=== PATIENT | female | born 1940 | race Caucasian/White ===

== ENCOUNTER 2019-05-03 22:52 | Inpatient (IN) | payer MEDICARE ==
[2019-05-03] MEDS ORDERED: Acetaminophen 500 MG TAB ONE (23:47)
[2019-05-03] MEDS ORDERED: metroNIDAZOLE 500 MG/100 ML BAG ONE (23:47)
[2019-05-03 23:49] LABS: #Monocytes 0.7 thou/uL (0.11-0.59); #Neutrophils 10.1 thou/uL (1.40-6.50); %Basophils 0.1 % (0.0-1.0); %Eosinophils 0.1 % (0.0-10.0); %Lymphocytes 15.6 % (21.0-51.0); %Monocytes 5.1 % (0.0-10.0); Hemoglobin 11.9 g/dL (12.0-16.0); Mean Corpuscular HGB CONC 34.2 g/dL (32.0-36.0); Mean Corpuscular Hemoglobin 30.3 pg (27.0-31.0); Mean Corpuscular Volume 88.8 fL (78.0-98.0); Platelet Count 134 thou/uL (130-400); RBC Distribution Width 12.4 % (11.5-14.5); Red Blood Cell (RBC) Count 3.94 mill/uL (4.20-5.40); White Blood Cell (WBC) Count 12.8 thou/uL (4.8-10.8)
[2019-05-03 23:57] LABS: PTT 27.1 SEC (22.9-36.1); Prothrombin Time 12.9 SEC (12.0-14.7)
[2019-05-04 00:10] LABS: ALT (SGPT) 29 U/L (8-55); AST (SGOT) 25 U/L (5-34); Albumin 3.9 g/dL (3.4-4.8); Alkaline Phosphatase 82 U/L (40-110); Anion Gap 14 mmol/L (10-20); BUN (Urea Nitrogen) 24 mg/dL (9.8-20.1); Bilirubin, Total 0.5 mg/dL (0.2-1.2); Calc. Creatinine Clearance 0 mL/min (70-130); Calcium 9.1 mg/dL (7.8-10.44); Carbon Dioxide 20 mmol/L (23-31); Chloride 107 mmol/L (98-107); Estimated GFR-MDRD 45; Globulin 2.1 g/dL (2.4-3.5); Glucose 114 mg/dL (83-110); Sodium 137 mmol/L (136-145)
--- NOTE | 2019-05-04 01:05 | HP ---
PRESENTING COMPLAINT: Bloody stool. HISTORY OF PRESENT ILLNESS: Ms. Nnamdi Paniagua is an 79-year-old female with past medical history of hypertension, CAD, history of colon cancer, status post resection 20 years ago on annual colonoscopy with last colonoscopy one year ago. Findings of small polyps, that were resected. The patient did develop transient crampy abdominal pain earlier today, associated with stool, which was initially brownish with few streaks of blood present this afternoon. She went to the outside facility ED, where she had CT scan, that showed evidence of possible colitis versus mass. The patient was transferred here. She has not had any bowel movement since the last 8 hours. She denies any abdominal pain. She denies any nausea or vomiting. She denies any recent intake. She was noted with fever to 101, but she denies any chills. She denies any associated diarrhea. PAST MEDICAL HISTORY: Hypertension, hyperlipidemia, and coronary artery disease. PAST SURGICAL HISTORY: Colon resection for cancer as well as hysterectomy and appendectomy. FAMILY HISTORY: No history of coronary artery disease. SOCIAL HISTORY: The patient is a lifelong nonsmoker. No history of alcohol or illicit drug use. Resides in community with her spouse. REVIEW OF SYSTEMS: All systems reviewed x14 were negative. ALLERGIES: HYDRALAZINE AND IODINE. HOME MEDICATION: Awaiting med reconciliation. PHYSICAL EXAMINATION: VITAL SIGNS: Current vitals; blood pressure of 136/66, pulse of 96, respiratory rate of 17, temperature 101, O2 saturation 96% on room air. GENERAL: Elderly female, calm, not in any distress . HEENT: Head is atraumatic and normocephalic. [place] conjunctivae. NECK: No JVD. No carotid bruit. RESPIRATORY: Good air entry. No crepitation. CARDIOVASCULAR: S1 and S2. Rate and rhythm are regular. GI: Abdomen is full, soft, nontender. Bowel sounds positive in all four quadrants. RECTAL: Deferred. EXTREMITIES: No pedal edema. No calf tenderness. NEURO: The patient is alert and oriented. Cranial nerves 2 through 12 grossly intact. LABORATORY DATA: WBC 12.8, hemoglobin 11.9, platelets 134, neutrophils 79%. INR 1.0, PTT 27. Sodium 137, potassium 4, bicarb 22, BUN 24, creatinine 1.1, lactate 1.3. AST and alkaline phosphatase normal. CT of the abdomen, awaiting official reading. IMPRESSION: 1. Presumed abdominal colitis. 2. Hypertension. 3. History of colon cancer. 4. Transient lower GI bleed. PLAN: We admit the patient to inpatient status given the presence of fever, most likely colitis, doubt the presence of colon cancer recurrence. We will consult GI. The patient may need a colonoscopy when more stable. We will start empirical antibiotics with Levaquin and Flagyl. We will start patient on a clear liquid diet for now. Gentle IV fluid with normal saline. Continue home medications with blood pressure control. We will do subcutaneous heparin for DVT prophylaxis. Advanced directives discussed with the patient, she wishes to be trial full code. Total time spent explaining the diagnosis and anticipated plan of management on discussion with patient and spouse present in the room, greater than 60 minutes. Job ID: [id number]
[2019-05-04] MEDS ORDERED: Sodium Chloride 0.9% 1,000 ML IV SCH (02:30)
[2019-05-04] MEDS ORDERED: HYDROcodone/Acetaminophen 5/325 mg Tablet PO PRN (03:08)
[2019-05-04] MEDS ORDERED: Nitroglycerin 0.4 MG TAB (25 Tab Bottle) SL PRN (03:08)
[2019-05-04] MEDS ORDERED: Morphine 2 MG/ML SYRINGE SLOW IVP PRN (03:08)
[2019-05-04] MEDS ORDERED: Acetaminophen 325 MG TAB PO PRN (03:08)
[2019-05-04 03:21] VITALS: BMI 29.3
[2019-05-04] MEDS: Sodium Chloride 0.9% 1,000 ML IV SCH ×2 (03:54→12:18)
[2019-05-04 07:32] LABS: Albumin 3.5 g/dL (3.4-4.8); Anion Gap 11 mmol/L (10-20); BUN (Urea Nitrogen) 23 mg/dL (9.8-20.1); BUN/Creatinine Ratio 19.83; Calc. Creatinine Clearance 49 mL/min (70-130); Calcium 8.7 mg/dL (7.8-10.44); Carbon Dioxide 26 mmol/L (23-31); Chloride 105 mmol/L (98-107); Estimated GFR-MDRD 45; Glucose 102 mg/dL (83-110); Phosphorus 3.5 mg/dL (2.3-4.7); Sodium 138 mmol/L (136-145)
[2019-05-04 08:04] LABS: #Basophils 0.2 thou/uL (0.0-0.2); #Lymphocytes 2.7 thou/uL (1.20-3.40); #Monocytes 0.8 thou/uL (0.11-0.59); #Neutrophils 8.6 thou/uL (1.40-6.50); %Basophils 1.2 % (0.0-1.0); %Eosinophils 0.2 % (0.0-10.0); %Lymphocytes 21.6 % (21.0-51.0); %Monocytes 6.7 % (0.0-10.0); %Neutrophils 70.3 % (42.0-75.0); Hemoglobin 11.1 g/dL (12.0-16.0); Mean Corpuscular HGB CONC 34.2 g/dL (32.0-36.0); Mean Corpuscular Hemoglobin 30.6 pg (27.0-31.0); Mean Corpuscular Volume 89.3 fL (78.0-98.0); Platelet Count 117 thou/uL (130-400); Platelet Morphology Comment Appears Decreased; RBC Distribution Width 12.5 % (11.5-14.5); Red Blood Cell (RBC) Count 3.64 mill/uL (4.20-5.40); White Blood Cell (WBC) Count 12.3 thou/uL (4.8-10.8)
[2019-05-04] MEDS: Famotidine 20 MG TAB PO SCH (08:29)
[2019-05-04] MEDS: metroNIDAZOLE 500 MG in Premix Bag 1 BAG IVPB SCH ×3 (08:30→23:41)
[2019-05-04] MEDS: Lisinopril 20 MG TAB PO SCH (08:30)
[2019-05-04] MEDS: Clopidogrel Bisulfate 75 MG TAB PO SCH (08:47)
[2019-05-04] MEDS: Heparin 5,000 UNITS/ML VIAL SC SCH ×3 (08:47→19:30)
[2019-05-04] MEDS: Aspirin 81 mg Enteric Coated Tablet PO SCH (08:47)
[2019-05-04] MEDS ORDERED: FLU VACC TS2019-20(65YR UP)/PF 180 MCG/0.5 ML SYRINGE IM ONE (09:00)
--- NOTE | 2019-05-04 12:14 | PDOC.HOSPP ---
- Subjective Encounter Date: 05/04/19 Subjective: BLOOD CLOTS IN STOOL - Objective Vital Signs & Weight: Vital Signs (12 hours) Temp Pulse Resp BP BP Pulse Ox 05/04/19 11:29 98.0 F 72 16 100/62 95 05/04/19 08:30 119/62 05/04/19 08:06 99.5 F 70 16 108/66 98 05/04/19 04:00 98.9 F 73 18 102/75 98 05/04/19 03:25 97 05/04/19 02:50 99.1 F 92 18 123/70 97 Weight Weight 176 lb 4 oz I&O: 05/03/19 05/04/19 05/05/19 06:59 06:59 06:59 Intake Total 650 Balance 650 Result Diagrams: 05/04/19 06:52 05/04/19 06:52 Hospitalist ROS - Review of Systems Other: BLOOD CLOTS IN STOOL - Medication Medications: Active Medications Generic Name Dose Route Start Last Admin Trade Name Freq PRN Reason Stop Dose Admin Aspirin 81 mg 05/04/19 09:00 05/04/19 08:47 Ecotrin PO Not Given [facility] Clopidogrel Bisulfate 75 mg 05/04/19 09:00 05/04/19 08:47 Plavix PO Not Given QAM [facility] Famotidine 20 mg 05/04/19 09:00 05/04/19 08:29 Pepcid PO 20 mg 0900 SHMUEL Administration Heparin Sodium (Porcine) 5,000 units 05/04/19 09:00 05/04/19 12:01 Heparin SC Not Given TID SHMUEL Metronidazole 500 mg/ Device 100 mls @ 100 mls/hr 05/04/19 08:00 05/04/19 08: 30 IVPB 100 mls 0800,1600,2359 SHMUEL Administration Levofloxacin 500 mg/ Device 100 mls @ 100 mls/hr 05/04/19 14:00 05/04/19 12: 04 IVPB 100 mls 1400 SHMUEL Administration Sodium Chloride 1,000 mls @ 50 mls/hr 05/04/19 03:08 05/04/19 03:54 Normal Saline 0.9% IV 1,000 mls .Q20H SHMUEL Administration Isosorbide Mononitrate 60 mg 05/04/19 09:00 05/04/19 08:30 Imdur PO 60 mg QAM SHMUEL Administration Lisinopril 20 mg 05/04/19 09:00 05/04/19 08:30 Zestril PO 20 mg QAM SHMUEL Administration Metoprolol Succinate 25 mg 05/04/19 09:00 05/04/19 08:30 Toprol Xl PO 25 mg QAM SHMUEL Administration Ranolazine 500 mg 05/04/19 09:00 05/04/19 08:30 Ranexa PO 500 mg BID SHMUEL Administration - Exam Eye: PERRL, anicteric sclera ENT: normocephalic atraumatic, no oropharyngeal lesions, moist mucosa Neck: supple, symmetric, no JVD, no thyromegaly, no lymphadenopathy, no carotid bruit Heart: RRR, no murmur, no gallops, no rubs, normal peripheral pulses Respiratory: CTAB, no wheezes, no rales, no ronchi, normal chest expansion, no tachypnea, normal percussion Gastrointestinal: soft, non-tender, non-distended, normal bowel sounds, no palpable masses, no hepatomegaly, no splenomegaly, no bruit Extremities: no cyanosis, no clubbing, no edema Neurological: cranial nerve grossly intact, normal sensation to touch, no weakness, no focal deficits, no new deficit Musculoskeletal: normal tone, normal strength, no muscle wasting Psychiatric: normal affect, normal behavior, A&O x 3 Hosp A/P (1) Acute GI hemorrhage Code(s): K92.2 - GASTROINTESTINAL HEMORRHAGE, UNSPECIFIED Status: Acute Plan: GI HAS BEEN CONSULTED.AWAITING EVAL.LIKELY DIVERTICULAR BLEED. (2) CAD (coronary artery disease) Code(s): I25.10 - ATHSCL HEART DISEASE OF [place] CORONARY ARTERY W/O ANG PCTRS Status: Acute Qualifiers: Coronary Disease-Associated Artery/Lesion type: [place] artery [place] vs. transplanted heart: [place] heart Associated angina: with unspecified angina Qualified Code(s): I25.119 - Atherosclerotic heart disease of [place] coronary artery with unspecified angina pectoris (3) Dyslipidemia Code(s): E78.5 - HYPERLIPIDEMIA, UNSPECIFIED Status: Chronic (4) HTN (hypertension) Code(s): I10 - ESSENTIAL (PRIMARY) HYPERTENSION Status: Chronic Qualifiers: Hypertension type: essential hypertension Qualified Code(s): I10 - Essential (primary) hypertension - Plan old records reviewed/req, out of bed/ambulate WE WILL FOLLOW CBC AND GI EVALUATION.
[2019-05-04] MEDS: ALPRAZolam 0.5 MG TAB PO SCH (21:12)
[2019-05-04] MEDS: Atorvastatin Calcium 10 MG TAB PO SCH (21:12)
--- NOTE | 2019-05-04 22:05 | CON ---
DATE OF CONSULTATION: 05/04/[address] Annel Han. REASON FOR CONSULTATION: Hematochezia, abnormal CAT scan of the abdomen. HISTORY OF PRESENT ILLNESS: Ms. Arcelia Coto is a very pleasant 79-year-old female with history of colon cancer more than 21 years ago. She has had some resection of the colon mass and has done very well. She has been seeing Dr. Multani in [place] for colonoscopy. She had a colonoscopy a year ago and had some polyps removed. She has also seen Dr. Pavan Naranjo in 2013 and had an EGD and a colonoscopy. She also has couple of small polyps removed. The patient does not want to go back and see Dr. Multani and she also does not want to go back to Dr. Pavan Naranjo. The patient has been having abdominal pain off and on over the last 6 months or so. The pain is actually over the left upper quadrant under the margin. She tells me her pain comes and goes. She has never told her primary care doctor about the pain. The patient also had acute abdominal pain yesterday. The pain was cramping in nature and over the left upper quadrant and close the pelvic area. The pain was cramping in nature and not much severe. She had no fever, no nausea or vomiting. She had developed diarrhea with multiple loose stool subsequent to passing blood. She says she passed very large amount of blood. Abdominal pain markedly improved today and also bleeding has markedly slowed down. She had ongoing diarrhea. The patient denies any recent antibiotic intake. No prior history of any colitis. Although, she says she has passed a large amount of blood, her blood count is reasonably close to being normal. The admitting CBC, hemoglobin 11.9, hematocrit 35. Today, hemoglobin 11.1, hematocrit 33.3. Bleeding has markedly slowed down today. Also has ongoing diarrhea. She is tolerating clear liquid diet. Abdomen, which was pretty severe yesterday has markedly improved, but she still has some soreness over the left lower quadrant. She has no prior history of colitis. CAT scan of the abdomen did show some colitis over the left colon area and is on IV antibiotics. She has no relevant history. ALLERGIES: HYDRALAZINE AND IODINE. SOCIAL HISTORY: The patient is . Does not smoke or drink alcohol. No history of drug use. MEDICAL ILLNESS: 1. Hypertension. 2. Hyperlipidemia. 3. Coronary artery disease, stent placement by Dr. Jorge I think 3 years ago. She does see Dr. Jorge at least every 6 months. 4. Colon cancer, status post resection 20 years ago. 5. Fibroid uterus, status post hysterectomy. 6. Appendectomy. 7. Colonoscopy and polypectomy. 8. EGD and biopsy, 5 years ago. FAMILY HISTORY: Has a family history of cancer. One maternal aunt had colon cancer, another aunt had breast cancer, another one had lung cancer. No family history of diabetes, heart disease, or CVA. MEDICATION LIST: Reviewed. REVIEW OF SYSTEMS: Ten-point system review. HEAD: No chronic headache. No dizziness. EYES: No impaired vision, no diplopia. EARS: No hearing loss. No pain or any discharge. NOSE: No nose bleed. THROAT: No dysphagia or sore throat. NECK: No stiffness or pain. LUNGS: No chronic coughing, hemoptysis, or dyspnea. CARDIOVASCULAR SYSTEM: Coronary artery disease, status post stent placement. No chest pain. No palpitation. No dyspnea, orthopnea, or PND. : No dysuria or hematuria. MUSCULOSKELETAL/NEURO/ENDOCRINE/PSYCHIATRY: Nonrelevant. PHYSICAL EXAMINATION: GENERAL: She appears very comfortable, in no acute distress. VITAL SIGNS: Afebrile, pulse is 69, blood pressure is 100/62. HEENT: Conjunctivae are clear. NECK: Supple. No lymphadenopathy. CARDIOVASCULAR SYSTEM: First and second heart sounds are normal. LUNGS: Clear to auscultation. ABDOMEN: Soft. Abdomen is nondistended. Minimally tender over the left lower quadrant. There is no rebound or guarding. Bowel sounds are normal. EXTREMITIES: Reveal no edema. LABORATORY DATA: CBC today WBC 12,300; hemoglobin 11.1; hematocrit 32.5; MCV 89.3; platelet count 117,000. Polymorphs 70, lymphocytes 21. Chemistry panel; lytes are normal. BUN is 23, creatinine 1.16, glucose 102, calcium 7.7, phosphorus 3.5. LFT is normal. Albumin 3.9. CAT scan of the abdomen showed left-sided colitis, infectious versus ischemic. IMPRESSION: 1. An 79-year-old female with abdominal cramping and diarrhea, rectal bleeding. CAT scan did show colitis. She has infectious colitis versus ischemic colitis. 2. History of colon cancer, status post surgery 21 years ago. 3. Colon polyp. 4. Hypertension. RECOMMENDATIONS: Advance diet to regular diet tomorrow. If she does well, she can probably go home on antibiotics. She will come back to see me in 2 weeks for a colonoscopy as an outpatient. Job ID: [id number]
[2019-05-05] MEDS: Ondansetron PF 4 MG/2 ML Vial SLOW IVP PRN (01:11)
[2019-05-05] MEDS: metroNIDAZOLE 500 MG in Premix Bag 1 BAG IVPB SCH ×3 (08:04→23:52)
[2019-05-05] MEDS: Aspirin 81 mg Enteric Coated Tablet PO SCH (08:05)
[2019-05-05] MEDS: Famotidine 20 MG TAB PO SCH (08:05)
[2019-05-05] MEDS: Lisinopril 20 MG TAB PO SCH (08:05)
[2019-05-05] MEDS: Clopidogrel Bisulfate 75 MG TAB PO SCH (08:06)
[2019-05-05] MEDS: Heparin 5,000 UNITS/ML VIAL SC SCH ×3 (08:12→20:10)
--- NOTE | 2019-05-05 14:55 | PRG ---
DATE OF SERVICE: 05/05/2019 SUBJECTIVE: This is a very pleasant 79-year-old female hospitalized for acute diarrhea, hematochezia, and abdominal pain. Her abdominal pain is worse as well. She has had less frequent stools. She had 2 stools yesterday and one stool today. However, the stools are watery. She also has mild bleeding in the stool. She has had some mild nausea today and was medicated. OBJECTIVE: GENERAL: Appears comfortable. VITAL SIGNS: Afebrile, pulse is 60, and blood pressure 108/58. CARDIOVASCULAR SYSTEM AND LUNGS: Within normal limits. ABDOMEN: Soft. Abdomen is tender over the left quadrant area, but tenderness is very mild. There is no rebound or guarding. IMPRESSION: 1. Acute colitis, most likely infectious versus ischemic. 2. Colon cancer, status post surgery 21 years ago. 3. Colon polyp. RECOMMENDATIONS: 1. Advance diet to regular diet. 2. She does well with regular diet, consider discharge home on Cipro and Flagyl. She will come back to see me in the next couple of weeks as an outpatient. However, she has recurrence of diarrhea with oral intake, may have to do some stool exam. Job ID: [id number]
--- NOTE | 2019-05-05 16:12 | PDOC.HOSPP ---
- Subjective Encounter Date: 05/05/19 Subjective: some diarrhea without any clots - Objective Vital Signs & Weight: Vital Signs (12 hours) Temp Pulse Resp BP BP Pulse Ox 05/05/19 11:45 98.0 F 60 20 108/58 L 95 05/05/19 08:05 119/62 05/05/19 08:00 98.1 F 59 L 20 110/69 97 Weight Admit Weight 176 lb 4 oz Weight 176 lb 4 oz I&O: 05/04/19 05/05/19 05/06/19 06:59 06:59 06:59 Intake Total 650 1999 480 Balance 650 1999 480 Result Diagrams: 05/04/19 06:52 05/04/19 06:52 Hospitalist ROS - Review of Systems Other: no more per rectal bleeding - Medication Medications: Active Medications Generic Name Dose Route Start Last Admin Trade Name Freq PRN Reason Stop Dose Admin Alprazolam 0.5 mg 05/04/19 21:00 05/04/19 21:12 Xanax PO 0.5 mg HS SHMUEL Administration Aspirin 81 mg 05/04/19 09:00 05/05/19 08:05 Ecotrin PO 81 mg QAM SHMUEL Administration Atorvastatin Calcium 10 mg 05/04/19 21:00 05/04/19 21:12 Lipitor PO 10 mg HS SHMUEL Administration Clopidogrel Bisulfate 75 mg 05/04/19 09:00 05/05/19 08:06 Plavix PO 75 mg QAM SHMUEL Administration Famotidine 20 mg 05/04/19 09:00 05/05/19 08:05 Pepcid PO 20 mg 0900 SHMUEL Administration Heparin Sodium (Porcine) 5,000 units 05/04/19 09:00 05/05/19 14:17 Heparin SC Not Given TID SHMUEL Metronidazole 500 mg/ Device 100 mls @ 100 mls/hr 05/04/19 08:00 05/05/19 15: 36 IVPB 100 mls 0800,1600,2359 SHMUEL Administration Levofloxacin 500 mg/ Device 100 mls @ 100 mls/hr 05/04/19 14:00 05/05/19 13: 51 IVPB 100 mls 1400 SHMUEL Administration Sodium Chloride 1,000 mls @ 50 mls/hr 05/04/19 03:08 05/04/19 12:18 Normal Saline 0.9% IV 1,000 mls .Q20H SHMUEL Administration Isosorbide Mononitrate 60 mg 05/04/19 09:00 05/05/19 08:05 Imdur PO 60 mg QAM SHMUEL Administration Lisinopril 20 mg 05/04/19 09:00 05/05/19 08:05 Zestril PO 20 mg QAM SHMUEL Administration Metoprolol Succinate 25 mg 05/04/19 09:00 05/05/19 08:05 Toprol Xl PO 25 mg QAM SHMUEL Administration Ondansetron HCl 4 mg 05/05/19 00:03 05/05/19 01:11 Zofran SLOW IVP 4 mg Q6H PRN Administration Nausea/Vomiting Ranolazine 500 mg 05/04/19 09:00 05/05/19 08:05 Ranexa PO 500 mg BID SHMUEL Administration - Exam General Appearance: NAD, awake alert Eye: PERRL, anicteric sclera ENT: normocephalic atraumatic, no oropharyngeal lesions, moist mucosa Neck: supple, symmetric, no JVD, no thyromegaly, no lymphadenopathy, no carotid bruit Heart: RRR, no murmur, no gallops, no rubs, normal peripheral pulses Respiratory: CTAB, no wheezes, no rales, no ronchi, normal chest expansion, no tachypnea, normal percussion Gastrointestinal: soft, non-tender, non-distended, normal bowel sounds, no palpable masses, no hepatomegaly, no splenomegaly, no bruit Extremities: no cyanosis, no clubbing, no edema Skin: normal turgor, no lesions, no rashes Neurological: cranial nerve grossly intact, normal sensation to touch, no weakness, no focal deficits, no new deficit Musculoskeletal: normal tone, normal strength, no muscle wasting Hosp A/P (1) Acute GI hemorrhage Code(s): K92.2 - GASTROINTESTINAL HEMORRHAGE, UNSPECIFIED Status: Resolved Plan: resolved per rectal bleeding (2) CAD (coronary artery disease) Code(s): I25.10 - ATHSCL HEART DISEASE OF [place] CORONARY ARTERY W/O ANG PCTRS Status: Acute Qualifiers: Coronary Disease-Associated Artery/Lesion type: [place] artery [place] vs. transplanted heart: [place] heart Associated angina: with unspecified angina Qualified Code(s): I25.119 - Atherosclerotic heart disease of [place] coronary artery with unspecified angina pectoris (3) Dyslipidemia Code(s): E78.5 - HYPERLIPIDEMIA, UNSPECIFIED Status: Chronic (4) HTN (hypertension) Code(s): I10 - ESSENTIAL (PRIMARY) HYPERTENSION Status: Chronic Qualifiers: Hypertension type: essential hypertension Qualified Code(s): I10 - Essential (primary) hypertension - Plan old records reviewed/req, plan discussed w/ family Likely discharge plan in am with oral antibiotics.
[2019-05-05] MEDS: ALPRAZolam 0.5 MG TAB PO SCH (20:11)
[2019-05-05] MEDS: Atorvastatin Calcium 10 MG TAB PO SCH (20:11)
[2019-05-05] MEDS: Sodium Chloride 0.9% 1,000 ML IV SCH (20:12)
[2019-05-06] MEDS: Sodium Chloride 0.9% 1,000 ML IV SCH ×2 (04:34→16:09)
[2019-05-06] MEDS: Ondansetron PF 4 MG/2 ML Vial SLOW IVP PRN (08:09)
[2019-05-06] MEDS: Lisinopril 20 MG TAB PO SCH (08:10)
[2019-05-06] MEDS: Aspirin 81 mg Enteric Coated Tablet PO SCH (08:10)
[2019-05-06] MEDS: Clopidogrel Bisulfate 75 MG TAB PO SCH (08:11)
[2019-05-06] MEDS: Famotidine 20 MG TAB PO SCH (08:11)
[2019-05-06] MEDS: Heparin 5,000 UNITS/ML VIAL SC SCH ×3 (08:12→19:47)
[2019-05-06] MEDS: metroNIDAZOLE 500 MG in Premix Bag 1 BAG IVPB SCH ×2 (08:13→16:07)
--- NOTE | 2019-05-06 11:52 | PDOC.HOSPP ---
- Subjective Encounter Date: 05/06/19 Subjective: c/o intractable [place] and vomiting - Objective Vital Signs & Weight: Vital Signs (12 hours) Temp Pulse Resp BP BP Pulse Ox 05/06/19 08:10 135/72 05/06/19 08:00 98.1 F 68 20 151/71 H 96 05/06/19 05:21 98.4 F 135/72 05/06/19 00:00 67 146/73 H Weight Admit Weight 176 lb 4 oz Weight 176 lb 4 oz I&O: 05/05/19 05/06/19 05/07/19 06:59 06:59 06:59 Intake Total 1999 1869 Balance 1999 1869 Result Diagrams: 05/04/19 06:52 05/04/19 06:52 Hospitalist ROS - Review of Systems Gastrointestinal: reports: nausea, vomiting, diarrhea - Medication Medications: Active Medications Generic Name Dose Route Start Last Admin Trade Name Freq PRN Reason Stop Dose Admin Alprazolam 0.5 mg 05/04/19 21:00 05/05/19 20:11 Xanax PO 0.5 mg HS SHMUEL Administration Aspirin 81 mg 05/04/19 09:00 05/06/19 08:10 Ecotrin PO 81 mg QAM SHMUEL Administration Atorvastatin Calcium 10 mg 05/04/19 21:00 05/05/19 20:11 Lipitor PO 10 mg HS SHMUEL Administration Clopidogrel Bisulfate 75 mg 05/04/19 09:00 05/06/19 08:11 Plavix PO 75 mg QAM SHMUEL Administration Famotidine 20 mg 05/04/19 09:00 05/06/19 08:11 Pepcid PO 20 mg 0900 SHMUEL Administration Heparin Sodium (Porcine) 5,000 units 05/04/19 09:00 05/06/19 08:12 Heparin SC Not Given TID SHMUEL Metronidazole 500 mg/ Device 100 mls @ 100 mls/hr 05/04/19 08:00 05/06/19 08: 13 IVPB 100 mls 0800,1600,2359 SHMUEL Administration Levofloxacin 500 mg/ Device 100 mls @ 100 mls/hr 05/04/19 14:00 05/05/19 13: 51 IVPB 100 mls 1400 SHMUEL Administration Sodium Chloride 1,000 mls @ 50 mls/hr 05/04/19 03:08 11/26/19 04:34 Normal Saline 0.9% IV 1,000 mls .Q20H SHMUEL Administration Isosorbide Mononitrate 60 mg 05/04/19 09:00 05/06/19 08:11 Imdur PO 60 mg QAM SHMUEL Administration Lisinopril 20 mg 05/04/19 09:00 05/06/19 08:10 Zestril PO 20 mg QAM SHMUEL Administration Metoprolol Succinate 25 mg 05/04/19 09:00 05/06/19 08:11 Toprol Xl PO 25 mg QAM SHMUEL Administration Ondansetron HCl 4 mg 05/05/19 00:03 05/06/19 08:09 Zofran SLOW IVP 4 mg Q6H PRN Administration Nausea/Vomiting Ranolazine 500 mg 05/04/19 09:00 05/06/19 08:10 Ranexa PO 500 mg BID SHMUEL Administration - Exam General Appearance: awake alert Eye: PERRL, anicteric sclera ENT: normocephalic atraumatic, no oropharyngeal lesions, moist mucosa Neck: supple, symmetric, no JVD, no thyromegaly, no lymphadenopathy, no carotid bruit Heart: RRR, no murmur, no gallops, no rubs, normal peripheral pulses Respiratory: CTAB, no wheezes, no rales, no ronchi, normal chest expansion, no tachypnea, normal percussion Gastrointestinal: soft, non-tender, non-distended, normal bowel sounds, no palpable masses, no hepatomegaly, no splenomegaly, no bruit Extremities: no cyanosis, no clubbing, no edema Skin: normal turgor, no lesions, no rashes Neurological: cranial nerve grossly intact, normal sensation to touch, no weakness, no focal deficits, no new deficit Musculoskeletal: normal tone, normal strength, no muscle wasting Psychiatric: normal affect, normal behavior, A&O x 3 Hosp A/P (1) Acute GI hemorrhage Code(s): K92.2 - GASTROINTESTINAL HEMORRHAGE, UNSPECIFIED Status: Resolved (2) CAD (coronary artery disease) Code(s): I25.10 - ATHSCL HEART DISEASE OF [place] CORONARY ARTERY W/O ANG PCTRS Status: Acute Qualifiers: Coronary Disease-Associated Artery/Lesion type: [place] artery [place] vs. transplanted heart: [place] heart Associated angina: with unspecified angina Qualified Code(s): I25.119 - Atherosclerotic heart disease of [place] coronary artery with unspecified angina pectoris (3) Dyslipidemia Code(s): E78.5 - HYPERLIPIDEMIA, UNSPECIFIED Status: Chronic (4) HTN (hypertension) Code(s): I10 - ESSENTIAL (PRIMARY) HYPERTENSION Status: Chronic Qualifiers: Hypertension type: essential hypertension Qualified Code(s): I10 - Essential (primary) hypertension (5) Colitis Code(s): K52.9 - NONINFECTIVE GASTROENTERITIS AND COLITIS, UNSPECIFIED Status : Acute Plan: S/P COLONOSCOPY WITH ADVICE FOR ANTIBIOTICS. (6) Intractable nausea and vomiting Code(s): R11.2 - NAUSEA WITH VOMITING, UNSPECIFIED Status: Acute Plan: CONTINUE ZOFRAN . - Plan old records reviewed/req, plan discussed w/ family, out of bed/ambulate 1.Colitis and patient adviced for antibiotics. 2.Today c/o intractable nausea,vomiting and diarrhea.Prescribed oral probiotics. 3.For now dont suspect diarrhea due to c diff.
[2019-05-06] MEDS ORDERED: Saccharomyces boulardii 250 MG CAP PO SCH (14:45)
--- NOTE | 2019-05-06 16:48 | PRG ---
DATE OF SERVICE: 05/06/2019 SUBJECTIVE: Ms. Coto was having a lot of nausea and some dry heaves earlier today. She is not having significant abdominal pain, just more generalized abdominal discomfort. She has had 2 bowel movements, which have been loose, but there has been no further blood in the stool. She has been tolerating her diet this afternoon. OBJECTIVE: VITAL SIGNS: Temperature 98.1, pulse 68, blood pressure 135/72, and 98% oxygen saturation on room air. GENERAL: In no acute distress. HEART: Regular rate and rhythm. LUNGS: Clear to auscultation bilaterally. ABDOMEN: Soft. Bowel sounds present. Nontender to palpation. EXTREMITIES: No peripheral edema. LABORATORY STUDIES: No new labs today. ASSESSMENT AND PLAN: 1. Acute left-sided colitis, likely ischemic versus infectious. 2. History of colon cancer, status post surgery 21 years ago. 3. Nausea. 4. Abdominal pain, improved. 5. Diarrhea, improving. The patient is now on day 3 of ciprofloxacin and Flagyl. Colitic symptoms do seem to be continuing to slowly improve. Based on her overall presentation and the location of the colitis, I would more strongly favor ischemic colitis. Typically, symptoms resolve within 1 to 2 weeks, though some degree of diarrhea may persist for some time thereafter. It is possible that the metronidazole may be contributing to the nausea. I would favor going ahead and finishing the antibiotics now, continuing other supportive care, advancing diet as tolerated. If she is tolerating her diet well tomorrow with otherwise good symptom control, I would see no barrier to hospital discharge. She has plans to follow up with Dr. Kasper in a couple of weeks for outpatient colonoscopy. Job ID: [id number]
[2019-05-06] MEDS: ALPRAZolam 0.5 MG TAB PO SCH (20:13)
[2019-05-06] MEDS: Atorvastatin Calcium 10 MG TAB PO SCH (20:13)
[2019-05-07 06:28] LABS: #Basophils 0.1 thou/uL (0.0-0.2); #Eosinphils 0.1 thou/uL (0.0-0.7); #Monocytes 0.5 thou/uL (0.11-0.59); #Neutrophils 2.5 thou/uL (1.40-6.50); %Basophils 1.2 % (0.0-1.0); %Eosinophils 2.4 % (0.0-10.0); %Lymphocytes 38.4 % (21.0-51.0); %Monocytes 9.3 % (0.0-10.0); %Neutrophils 48.8 % (42.0-75.0); Hemoglobin 10.1 g/dL (12.0-16.0); Mean Corpuscular HGB CONC 33.1 g/dL (32.0-36.0); Mean Corpuscular Hemoglobin 29.8 pg (27.0-31.0); Mean Platelet Volume 8.1 fL (7.4-10.4); Platelet Count 119 thou/uL (130-400); RBC Distribution Width 12.5 % (11.5-14.5); White Blood Cell (WBC) Count 5.1 thou/uL (4.8-10.8)
[2019-05-07 06:35] LABS: ALT (SGPT) 16 U/L (8-55); AST (SGOT) 19 U/L (5-34); Albumin 3.1 g/dL (3.4-4.8); Alkaline Phosphatase 64 U/L (40-110); Anion Gap 11 mmol/L (10-20); BUN (Urea Nitrogen) 11 mg/dL (9.8-20.1); Bilirubin, Total 0.3 mg/dL (0.2-1.2); Calc. Creatinine Clearance 70 mL/min (70-130); Calcium 8.3 mg/dL (7.8-10.44); Carbon Dioxide 20 mmol/L (23-31); Chloride 110 mmol/L (98-107); Estimated GFR-MDRD 68; Glucose 91 mg/dL (83-110); Potassium 3.7 mmol/L (3.5-5.1); Protein, Total 5.1 g/dL (6.0-8.3); Sodium 137 mmol/L (136-145)
[2019-05-07] MEDS ORDERED: Saccharomyces boulardii 250 MG CAP PO SCH (09:00)
[2019-05-07] MEDS: Aspirin 81 mg Enteric Coated Tablet PO SCH (09:30)
[2019-05-07] MEDS: Lisinopril 20 MG TAB PO SCH (09:30)
[2019-05-07] MEDS: Clopidogrel Bisulfate 75 MG TAB PO SCH (09:31)
[2019-05-07] MEDS: Heparin 5,000 UNITS/ML VIAL SC SCH (09:31)
[2019-05-07] MEDS: Famotidine 20 MG TAB PO SCH (09:31)
[2019-05-07 11:53] VITALS: BP 150/74; TEMP 97.7
--- NOTE | 2019-05-07 12:31 | PRG ---
DATE OF SERVICE: 05/07/2019 SUBJECTIVE: Ms. Coto is feeling a lot better today. She has been tolerating her diet. There is no nausea. No abdominal pain. She has had one loose bowel movement today with no blood in it. OBJECTIVE: VITAL SIGNS: Temperature 97.7, pulse 61, blood pressure 150/74, and 97% oxygen saturation on room air. GENERAL: No acute distress. HEART: Regular rate and rhythm. LUNGS: Clear to auscultation bilaterally. ABDOMEN: Bowel sounds present. Soft and nontender to palpation throughout. EXTREMITIES: No peripheral edema. LABORATORY STUDIES: Hemoglobin 10.1, WBC 5.1, platelets 119. Sodium 137, potassium 3.7, BUN 11, and creatinine 0.81. LFTs all normal. ASSESSMENT AND PLAN: 1. Acute left-sided colitis, likely representing ischemic colitis, clinically improved. 2. Abdominal pain, resolved. 3. Diarrhea, improving. The patient has had rapid clinical improvement over the past couple of days. Clinically, this remains consistent with resolving self-limited ischemic colitis episode. Expect continued improvement over the next 1 to 2 weeks, back to baseline. I do not think she needs any more antibiotics. From a GI perspective, if she is doing well this afternoon, she could be potentially discharged from the hospital. She plans to follow up with Dr. Kasper in a couple of weeks for outpatient colonoscopy. GI will sign off, but please call back anytime with questions or concerns. Job ID: [id number]
--- NOTE | 2019-05-08 02:47 | DIS ---
DATE OF ADMISSION: 05/04/2019 DATE OF DISCHARGE: 05/07/2019 ADMISSION DIAGNOSES: 1. Presumed abdominal colitis. 2. Hypertension. 3. History of colon cancer. 4. Transient lower gastrointestinal bleed. DISCHARGE DIAGNOSES: 1. Acute left-sided colitis, likely ischemic colitis. 2. Abdominal pain - resolved. 3. Coronary artery disease. 4. Essential hypertension. 5. Dyslipidemia. 6. Acute kidney injury - resolved. CONSULTATIONS: Gastroenterology, Dr. Pelon Kasper. PROCEDURES AND IMAGING: None. HOSPITAL COURSE: The patient is an 79-year-old female with past medical history of coronary artery disease; hypertension; dyslipidemia; history of colon cancer, status post resection 20 years ago; who presented to the emergency department due to abdominal pain associated with diarrhea with few streaks of blood. She went to an outside emergency department, where she had a CAT scan that showed evidence of possible colitis versus mass. Hence, the patient was admitted to [facility]. There, Gastroenterology was consulted. The patient was evaluated by Dr. Kasper from Gastroenterology. The patient was initially placed on intravenous fluids and intravenous antibiotics. She was found to have acute kidney injury. The patient's symptoms significantly improved with conservative management. Her acute kidney injury resolved. The patient has been able to tolerate diet with improvement in her abdominal pain and partial resolution of her diarrhea. Hence, the patient has been cleared for discharge home by Gastroenterology. On the day of discharge, the patient was lying in bed and appeared to be in no acute distress. She is currently consuming her lunch. Examination of the abdomen revealed soft abdomen with bowel sounds and minimal tenderness to palpation was noted in the right lower quadrant and the left lower quadrant. Auscultation of the lungs revealed clear breath sounds bilaterally. DISCHARGE INSTRUCTIONS: Discharge disposition: Home. Discharge medications: Reconciled. Please review the reconciliation report. Discharge followup: Dr. Cirilo De La Vega in 14 weeks; Dr. Kasper in 3 to 4 weeks. Discharge activity: As tolerated. Discharge diet: Low-sodium, heart-healthy diet. TIME SPENT: Total time taken for discharge 40 minutes. Job ID: [id number]
--- NOTE | 2019-05-12 21:10 | PQF ---
GLADYS IRVING RAMESH [id number] CLINICAL DOCUMENTATION CLARIFICATION FORM: POST DISCHARGE Addendum to original discharge summary date: ____ Late entry note date: __ DATE: 05/12/19 ATTN: Saji Taylor Please exercise your independent, professional judgment in responding to the clarification form. Clinical indicators are provided on the bottom of this form for your review In your clinical opinion based on clinical findings below, can you please identify the etiology of GI bleeding if due to: Please check appropriate box(s): [ ] Ischemic Colitis [ ] Colon Polyp [ ] Other condition, please specify [ ] Unable to determine In addition, please specify: Present on Admission (POA): [ ] Yes [ ] No [ ] Unable to determine For continuity of documentation, please document condition throughout progress notes and discharge summary. Thank You. CLINICAL INDICATORS - SIGNS / SYMPTOMS / LABS H&P p1 05/04 Dr Han The patient did develop transient crampy abdominal pain earlier today, associated with stool, which was initially brownish with few streaks of blood, present this afternoon H&P p1 05/04 Dr Han She was noted with fever to 101, but she denies any chills H&P p2 04/12 Dr Han admit the patient to IP status given the presence of fever, most likely colitis, doubt the presence of colon cancer recurrence GE consult p3 05/04 Dr Wills An 79-year-old female with abdominal cramping and diarrhea, rectal bleeding. CAT scan did show colitis RISK FACTORS H&P p1 05/04 79-year-old Female H&P p1 05/04 History of Colon Cancer GE consult p3 05/04 Ischemic Colitis GE consult p3 05/04 Colon polyp TREATMENTS: AUG 19 IV Levaquin AUG 19 IV Flagyl H&P p2 05/04 On clear liquid diet H&P p2 05/04 Gentle IV fluid with normal saline GE consult 05/04 Pelon Shi (This form is maintained as a part of the permanent medical record) 2014 [employer]. All Rights Reserved [email or web address] [not provided] [email or web address]
== END 2019-05-07 15:40 | disposition home or self-care (01) | DRG 378 ==
LOC: ERS 22:52 → T4-B 05-04 02:58
PROVIDERS: ADMIT Internal Medicine; ATTEND Internal Medicine
DX: K92.2 Gastrointestinal hemorrhage, unspecified (principal); K55.9 Vascular disorder of intestine, unspecified; N17.9 Acute kidney failure, unspecified; I25.10 Atherosclerotic heart disease of native coronary artery without angina pectoris; I10 Essential (primary) hypertension; E78.5 Hyperlipidemia, unspecified; K63.5 Polyp of colon; Z85.038 Personal history of other malignant neoplasm of large intestine; Z90.49 Acquired absence of other specified parts of digestive tract; Z90.710 Acquired absence of both cervix and uterus; Z88.8 Allergy status to other drugs, medicaments and biological substances; Z91.041 Radiographic dye allergy status; Z79.899 Other long term (current) drug therapy; Z95.5 Presence of coronary angioplasty implant and graft; Z23 Encounter for immunization
CPT/HCPCS: 36415; 80053; 80069; 83605; 85025; 85610; 85730; 86850; 86900; 86901; 90471; 90662; 96365; 96375; G0008; J0744; J1956; J2405